=== PATIENT | female | born 1950 | race Caucasian/White ===

== ENCOUNTER 2024-06-21 00:09 | Observation (INO) | payer MEDICARE, OTHER, SELFPAY ==
[2024-06-20] VITALS (15 sets, daily range): BP systolic 117–140; BP diastolic 55–91; BMI 19.9
[2024-06-20 18:31] LABS: Glucose - Point of Care 134 mg/dl (70-99)
[2024-06-20 18:36] LABS: % Eosinophils 0.9 % (0-6); % Immature Granulocytes 0.2 % (0-0.5); % Lymphocytes 37.2 % (20.5-51.1); % Neutrophils 52.7 % (42.2-75.2); Absolute Basophils 0.1 10^3/uL (0-0.2); Absolute Eosinophils 0.1 10^3/uL (0-0.7); Absolute Lymphocytes 3.7 10^3/uL (1.2-3.4); Absolute Monocytes 0.8 10^3/uL (0.1-0.6); Absolute Neutrophils 5.3 10^3/uL (1.4-6.5); Hematocrit 42.8 % (37.0-47.0); Hemoglobin 14.9 g/dL (12.0-16.0); Mean Corp Hgb Conc. 34.8 g/dL (33.0-37.0); Mean Corpuscular Hgb 32.4 pg (27.0-31.0); Mean Platelet Volume 9.4 fL (7.4-10.4); Nucleated Red Blood Cells % 0 %; Platelet Count 296 10^3/uL (130-400); Red Cell Dist. Width 13.5 % (11.5-14.5)
--- NOTE | 2024-06-20 18:37 | ED.GENMED ---
History of Present Illness
General
Chief Complaint: Fainting/Passed Out
Source: patient
Exam Limitations: none
Time Seen by Provider: 06/20/24 18:35
Nursing documentation reviewed up to this point in time: agreed with
History of Present Illness
History of Present Illness:
-year-old female presenting with department after passing out at a wedding. She was sitting at the table, and her son noticed that she had her head down on the table. She did not drink any alcohol. Son states she did not never drinks alcohol.
Upon arriving to triage she was pale with decreased responsiveness and near syncope. She feels weak.
Past History
Past History
ED Past Medical History: HTN and Hypercholesterolemia
Social History
Tobacco: Smoker
Alcohol: None
Drug: None
Review of Systems
Review of Systems
Allergies reviewed?: Yes
All Other Systems: Not applicable
Constitutional: Reports no symptoms
EENT: Reports no symptoms
Respiratory: Reports no symptoms
Cardiac: Reports syncope
ABD/GI: Reports no symptoms
: Reports no symptoms
Musculoskeletal: Reports no symptoms
Skin: Reports other (Yellow skin)
Neurological: Reports no symptoms
Endocrine: Reports no symptoms
Hematologic/Lymphatic: Reports no symptoms
Psychiatric: Reports no symptoms
Phy Exam
Physical Exam
Physical Exam:
Physical Exam
General: Appears frail, ill-appearing, temperature 98.0 rectal
Neck: supple. no meningeal signs. normal posterior pharynx
Heart: s1/s2 regular rate and rhythm, no murmur. equal radial
pulses.
HEENT: Pupils equal round reactive to light, EOMI
Lungs: no acute respiratory distress. clear bilaterally
Abdomen: normal bowel sounds. not tender. no CVAT, pulsatile mass epigastric
Neuro: alert and oriented. no focal neurological deficits cranial nerves II through XII intact
Skin: no rash, jaundice
Psychiatric: well kept. interactive and cooperative
Extremities: no edema. no calf tenderness. negative homans. good distal pulses
Course
Orders/Labs/Results
Orders:
Orders
06/20/24 18:19
EKG [Electrocardiogram (*1)] Urgent
Reason for Study: Chest Pain
06/20/24 18:20
EKG- Treatment ONCE
06/20/24 18:22
Complete Blood Count/With Diff Urgent
Comprehensive Metabolic Panel Urgent
Lipase Urgent
Comment: ADD ON
PTT Urgent
Prothrombin Time Urgent
Troponin I Urgent
06/20/24 18:33
Lactate Level [Lactic Acid] Urgent
06/20/24 18:34
Add On- LAB Urgent
Tests Added?: lipase
06/20/24 18:37
CT Abd/pelvis W Iv Cont Urgent
Comment:
Reason For Exam: syncope, pulsatile mass epigastric region, jaundic
06/20/24 18:38
0.9% Sodium Chloride 1000 ml [Nss] 1,000 ml IV BOLUS
06/20/24 22:07
Urinalysis Reflex To Culture Urgent
Date Specimen was Collected: 06/20/24
Time Specimen was Collected: 18:32
Urine Microscopic Reflex Cult Urgent
Abnormal Lab Results
06/20/24 06/20/24 06/20/24
18:20 18:22 18:33
MCH 32.4 H pg
(27.0-31.0)
Absolute Lymphs (auto) 3.7 H 10^3/uL
(1.2-3.4)
Absolute Monos (auto) 0.8 H 10^3/uL
(0.1-0.6)
Sodium 132 L mmol/L
(135-145)
Glucose 161 H mg/dl
(70-99)
Lactic Acid 3.0 H mmol/L
(0.7-2.0)
Total Bilirubin 1.4 H mg/dl
(0.2-1.3)
Ur Occult Blood Reflex
Urine RBC
Urine Bacteria (Reflex)
POC Glucose 134 H mg/dl
(70-99)
06/20/24
22:07
MCH
Absolute Lymphs (auto)
Absolute Monos (auto)
Sodium
Glucose
Lactic Acid
Total Bilirubin
Ur Occult Blood Reflex 3+ A
(Negative)
Urine RBC 7-10 A /HPF
(0-2)
Urine Bacteria (Reflex) Few A
(Negative)
POC Glucose
06/20/24 18:22
06/20/24 18:22
Vital Signs
Initial and Last Documented VS:
Initial Vital Signs
Pulse Resp BP Pulse Ox
56 18 134/71 95
06/20/24 18:23 06/20/24 18:23 06/20/24 18:23 06/20/24 18:23
Last Documented Vital Signs
Temp Pulse Resp BP Pulse Ox
98.0 F 62 18 127/59 98
06/20/24 18:32 06/20/24 22:00 06/20/24 22:00 06/20/24 22:00 06/20/24 19:38
MDM/Problems Addressed
Differential Diagnosis Includes:
Ruptured AAA, dysrhythmia
MDM/Problems Addressed:
73-year-old female with multiple syncope episodes, incidental infrarenal AAA. Discussed with vascular surgery, recommends outpatient follow-up. Admit to hospitalist for further monitoring. Lactic acid elevated, unclear etiology. IV fluids given.
Chronic conditions affecting care: HTN
Acute Exacerbation and/or Progression of Chronic Illness: HTN
*Radiology
Radiology exam reviewed: radiology read reviewed (CT abdomen pelvis shows infrarenal AAA 4.1 cm, minimal prominence of intrahepatic bile ducts, chronic degenerative disc disease)
*Pulse Oximetry
Patient hypoxic: no
*Dentures Lab Technician Interpretation
Rate: normal
Interpretation: normal
Heart Rate: 66
Rhythm: sinus
*Critical Care Note
Total Time (30-74mins, 75-104mins- exclusive of procedures): Not Applicable
Patient Management
Social determinants of health affecting care: Living situation and Strong social support
Discussion with other providers: Hospitalist
Escalation/DeEscalation of care consider admission/obs:
admit indicated
ED Attending Note
-
Portions of this chart may have been created with voice recognition software.� Occasional wrong word or��sound alike� substitutions may have occurred due to the inherent limitations of voice recognition software.
Discharge Plan
Departure
Patient Disposition: Admit
Date of Disposition: 06/20/24
Time of Disposition: 22:48
Admit to: Telemetry
Presentation/result/management discussed w/ accepting MD/DO: Hospitalist
Patient with high blood pressure during this ER visit?: Yes
Condition: Good
Discharge Problem:
Syncope
Prescriptions:
No Action
atorvastatin 40 mg Tablet
40 mg PO DAILY
carvedilol 6.25 mg Tablet
6.25 mg PO BID
alendronate 35 mg Tablet
35 mg PO QWEEK
magnesium 250 mg Tablet
250 mg PO DAILY
Fish Oil Capsule
1,000 mg PO DAILY
duloxetine 20 mg Capsule, Delayed Rel Sprinkle
20 mg PO BID
Referrals:
Catherine Mckeon DO [Family Provider] -
Interventions
Interventions:
*Risk Screen - Suicide Last Done: 06/20/24 19:35
*General Assessment Last Done: 06/20/24 19:35
*Neglect/Abuse Screening Last Done: 06/20/24 19:35
*ED COVID-19 Vaccine History Last Done: 06/20/24 19:35
ED- Cardiac Assessment Last Done: 06/20/24 19:35
ED- Neurological Assessment Last Done: 06/20/24 19:35
Discharge Date and Time
Print Language: TELUGU
[2024-06-20 18:44] LABS: INR 1.03; PT 13.8 Sec (11.4-14.6)
[2024-06-20 18:45] LABS: APTT 29.7 Sec (23.4-35.0)
[2024-06-20] MEDS: NSS 1000 IV (18:46)
[2024-06-20 18:55] LABS: Troponin I < 0.012 ng/ml
[2024-06-20 19:01] LABS: ALT (SGPT) 15 U/L (0-35); AST (SGOT) 23 U/L (14-36); Albumin 4.1 g/dl (3.5-5.0); Alkaline Phosphatase 99 U/L (38-126); Blood Urea Nitrogen 13 mg/dl (7-17); Calcium 9.6 mg/dl (8.4-10.2); Carbon Dioxide 25 mmol/L (22-30); Chloride 101 mmol/L (98-107); Glucose 161 mg/dl (70-99); Lipase 82 U/L (23-300); Potassium 4.9 mmol/L (3.5-5.1); Sodium 132 mmol/L (135-145); Total Bilirubin 1.4 mg/dl (0.2-1.3); Total Protein 6.6 g/dl (6.3-8.2); eGFR > 60.00
[2024-06-20 22:13] LABS: Urine Albumin Negative (Neg - Trace); Urine Bilirubin Negative (Negative); Urine Character Clear (Clear); Urine Color Yellow; Urine Glucose Negative (Negative); Urine Ketone Negative (Negative); Urine Leukocyte Negative (Negative); Urine Nitrite Negative (Negative); Urine Occult Blood 3+ (Negative); Urine Urobilinogen Negative (Neg - 1+)
[2024-06-20 22:20] LABS: Urine Squamous Cell 26-30 /LPF (Few)
[2024-06-20 22:21] LABS: Urine Bacteria Few (Negative); Urine White Cell 0-2 /HPF (0-5)
--- NOTE | 2024-06-20 23:31 | HPS.HSE ---
Family Physician
-
Family Physician: Catherine Mckeon, DO
Chief Complaint
-
presyncope
History of Present Illness
73-year-old female past medical history of hypertension, hypercholesteremia, twitchy nerves, osteoporosis, presenting with near syncope at a wedding. She was at a wedding across the street and she felt dizzy and sweaty, pale looking and felt like
she was going to pass out. Put her head on the table and was close to passing out but did not pass out. Her family members brought her in a car to the hospital. She was given teressa dina without improvement. She continued to feel faint until she
was given IV fluids in the emergency room. She feels tired now but denies any other symptoms. Denies headache, blurry vision, chest pain or shortness of breath at any time. Denies fevers or chills, cough, nausea vomiting or diarrhea or any
infectious symptoms. No seizure activity was noted.
Patient did have breakfast did not eat anything all day.
She smokes half a pack of cigarettes per day. Denies alcohol use.
No family history of syncope. Did have a sister with heart issues.
Medical History
Past Medical History
Past Medical History: Reports Other (hypertension, hypercholesteremia, twitchy nerves, osteoporosis,)
Past Surgical History: Reports None
Social History
Tobacco: Non-smoker
Alcohol: None
Drug: None
Family History
Family History: Not pertinent
Allergies / Home Medications
Allergies reflects when Allergies were last updated in [employer].
Home Medications with original date entered in [employer]
Allergy/Medication List:
Allergies
Allergy/AdvReac Type Severity Reaction Status Date / Time
No Known Allergies Allergy Unverified 06/20/24 18:27
Home Medications
alendronate 35 mg tablet 35 mg PO QWEEK 06/20/24
atorvastatin 40 mg tablet 40 mg PO DAILY 06/20/24
carvedilol 6.25 mg tablet 6.25 mg PO BID 06/20/24
duloxetine 20 mg capsule,delayed release sprinkle 20 mg PO BID 06/20/24
magnesium 250 mg tablet 250 mg PO DAILY 06/20/24
omega-3 fatty acids 1,000 mg PO DAILY 06/20/24
Review of Systems
-
History Source: Patient
A 12 point ROS was completed and negative except as noted: Yes
Constitutional: Reports No Symptoms
EENT: Reports No Symptoms
Respiratory: Reports No Symptoms
Cardiac: Reports No Symptoms
Abdomen/GI: Reports No Symptoms
: Reports No Symptoms
Musculoskeletal: Reports No Symptoms
Skin: Reports No Symptoms
Neurological: Reports No Symptoms
Endocrine: Reports No Symptoms
Hematologic/Lymphatic: Reports No Symptoms
Psych: Reports No Symptoms
Physical Exam
Vital Signs
Vital Signs
Temp Pulse Resp BP Pulse Ox
98.0 F 66 19 128/55 98
06/20/24 18:32 06/20/24 23:15 06/20/24 23:15 06/20/24 23:00 06/20/24 19:38
Physical Exam
General: Well Developed, Well Nourished and No Apparent Distress
HEENT: NormoCephalic, Moist mucous membranes and Atraumatic
Respiratory: Clear
Cardiac: S1/S2 and Regular Rhythm; No Murmur or Rub
GI: Soft, Non Tender, Non Distended and Normal Bowel Sounds; No Organomegaly
Rectal: Deferred by Provider
Musculoskeletal: No Clubbing, No Cyanosis and No Edema
Skin: No Rash
Neuro: Nonfocal/grossly intact
Laboratory Results
-
06/20/24 18:22
06/20/24 18:22
Laboratory Results
PT 13.8 Sec (11.4-14.6) 06/20/24 18:22
INR 1.03 06/20/24 18:22
APTT 29.7 Sec (23.4-35.0) 06/20/24 18:22
Lactic Acid 3.0 mmol/L (0.7-2.0) H 06/20/24 18:33
Total Bilirubin 1.4 mg/dl (0.2-1.3) H 06/20/24 18:22
AST 23 U/L (14-36) 06/20/24 18:
ALT 15 U/L (0-35) 06/20/24 18:22
Alkaline Phosphatase 99 U/L (38-126) 06/20/24 18:
Troponin I < 0.012 ng/ml 06/20/24 18:
Lipase Cancelled 06/20/24 18:33
Data Reviewed
-
Lab Data: Labs Reviewed by me
Old Records: Reviewed
Impression/Plan
-
IMPRESSION:
PLAN:
# Presyncopal episode most likely vasovagal
-EKG unremarkable, tele monitoring
-Blood sugar of 161 so hypoglycemia unlikely
-Lactic of 3, recheck
-IV fluids were given
# Incidental discovery of abdominal aortic aneurysm
-CT abdomen pelvis report pending which showed abdominal aortic aneurysm, which was discussed with vascular recommended outpatient follow-up
Essential hypertension
-Continue Coreg
Hypercholesterolemia
-Continue statin
History of twitchy nerves
-Not anxiety or essential tremor or neuropathy as per patient
-On duloxetine for this
Osteoporosis
-Continue alendronate
Active smoker
-Half pack of cigarettes per day
Full code
DVT prophylaxis�heparin
Regular diet
[2024-06-21] VITALS (13 sets, daily range): BP systolic 117–151; BP diastolic 46–78; PULSE 59–65; BMI 18.5
[2024-06-21 00:25] LABS: Lactic Acid 0.9 mmol/L (0.7-2.0)
--- NOTE | 2024-06-21 03:31 | PTCARENOTE ---
Receive pt from ER. Pt alert oriented X3, pleasant, in no distress. Pt assist X1 to her bed, feels a little 'wobbly'. Pt oriented to the room, call leon within reach. Pt denies dizziness, chest pain, , SOB, headache, or fainting sensation. Pt on NSR
on tele monitor. VSS (T=97.9, HR=64, RR=18, ML=494/78, SpO2=98% on RA). Pt instructe to call before getting OOB. Pt agreeable. Will continue to monitor the pt.
[2024-06-21 08:27] LABS: % Basophils 1.1 % (0-2); % Eosinophils 1.6 % (0-6); % Immature Granulocytes 0.3 % (0-0.5); % Lymphocytes 30.5 % (20.5-51.1); % Monocytes 11.5 % (1.7-9.3); Absolute Basophils 0.1 10^3/uL (0-0.2); Absolute Eosinophils 0.1 10^3/uL (0-0.7); Absolute Lymphocytes 2.2 10^3/uL (1.2-3.4); Absolute Monocytes 0.8 10^3/uL (0.1-0.6); Hematocrit 33.5 % (37.0-47.0); Hemoglobin 11.9 g/dL (12.0-16.0); Mean Corp Hgb Conc. 35.5 g/dL (33.0-37.0); Mean Corpuscular Hgb 32.9 pg (27.0-31.0); Mean Corpuscular Volume 92.5 fL (81.0-99.0); Nucleated Red Blood Cells % 0 %; Platelet Count 248 10^3/uL (130-400); Red Blood Cell Count 3.62 10^6/uL (4.20-5.40); Red Cell Dist. Width 13.4 % (11.5-14.5); White Blood Cell Count 7.3 10^3/uL (4.8-10.8)
[2024-06-21 08:36] LABS: ALT (SGPT) 12 U/L (0-35); AST (SGOT) 18 U/L (14-36); Albumin 3.1 g/dl (3.5-5.0); Alkaline Phosphatase 83 U/L (38-126); Blood Urea Nitrogen 10 mg/dl (7-17); Calcium 8.7 mg/dl (8.4-10.2); Carbon Dioxide 25 mmol/L (22-30); Chloride 103 mmol/L (98-107); Estimated Creatinine Clearance 53 ml/min; Glucose 89 mg/dl (70-99); Potassium 3.8 mmol/L (3.5-5.1); Sodium 134 mmol/L (135-145); Total Bilirubin 1.4 mg/dl (0.2-1.3); Total Protein 5.2 g/dl (6.3-8.2); eGFR > 60.00
[2024-06-21] MEDS: LIPITOR 40 MG PO (09:21)
[2024-06-21] MEDS: COREG 6.25 MG PO (09:21)
[2024-06-21] MEDS: MAGNESIUM OXIDE 250 MG PO (09:21)
[2024-06-21] MEDS: CYMBALTA DELAYED RELEASE 20 MG PO (09:22)
--- NOTE | 2024-06-21 10:53 | CM ---
Patient seen at bedside
IA completed - WILDE form explained. Verbalize understanding. In chart
Lives alone in 2 story home, 5 steps to enter, flight stairs to bedroom, full bath on 1st floor
plof: Independent, no assistive device
DME: [facility]
Had [facility] in past, denies rehab
PCP: Catherine Mckeon
PHARMACY: [facility]
PLAN: home, no needs anticipated
son to transport
--- NOTE | 2024-06-21 12:36 | W.PN.HOSP.TC ---
Today's Communication/Plan
-
Discharge home
OP follow-up with livestock haulier for consideration of heart monitor
OP follow-up with PCP for AAA monitoring
Smoking cessation (Rx for nicotine patches
Assessment / Plan
Assessment / Plan
#Presyncopal
-episode most likely vasovagal, occurred after standing and had no prodromal symptoms
-Patient states she has never passed out previously, denies significant cardiac history
-Upon arrival ECG without ischemic findings, no signs of hypoglycemia
-May have had a degree of dehydration versus hypotension as lactate was mildly elevated
-Proceed IV fluids with resolution of lactic acidosis, improved symptoms
-Orthostatic vital signs today negative; telemetry without any events overnight
-Will discharge, can follow-up OP with livestock haulier for consideration of MCOT
#Abdominal aortic aneurysm
-CT abdomen pelvis report pending which showed abdominal aortic aneurysm, which was discussed with vascular recommended outpatient OP follow-up
-Continue with carvedilol and high intensity statin therapy
-Encourage absolute smoking cessation
#Essential hypertension
-Does have hypertensive systemic disease with newly found AAA
-Home regimen includes carvedilol 6.25 twice daily
-Blood pressure here fairly well-controlled
-BP goal <140/90 with AAA
#Hypercholesterolemia
-No history of obstructive CAD though does have some PAD with AAA found on CT
-Home medications include high intensity statin
-LDL goal <70
#History of twitchy nerves
-Not anxiety or essential tremor or neuropathy as per patient
-States that she had an issue with cardiac cath due to 'her nerves blocking the catheter'
-On duloxetine for this
#Osteoporosis
-Continue alendronate
#Active smoker
-Half pack of cigarettes per day
-Encouraged cessation
Full code
DVT prophylaxis�heparin
Regular diet
Anticipated Discharge: Today
Subjective/Interval History
-
Date of Service: June 21, 2024
Objective Data
-
Labs:
Laboratory Results
06/21/24
07:19
WBC 7.3
Hgb 11.9 L D
Hct 33.5 L
Plt Count 248
Sodium 134 L
Potassium 3.8
Chloride 103
Carbon Dioxide 25
BUN 10
Creatinine 0.7
Glucose 89
Calcium 8.7
Total Bilirubin 1.4 H
AST 18
ALT 12
Alkaline Phosphatase 83
Vital Signs:
Vital Signs
Temp Pulse Resp BP Pulse Ox
97.8 F 62 18 117/76 96
06/21/24 07:00 06/21/24 09:21 06/21/24 07:00 06/21/24 09:21 06/21/24 09:10
I&O
06/20/24 06/21/24 06/22/24
06:59 06:59 06:59
Intake Total 480 / 480
Balance 480 / 480
--- NOTE | 2024-06-21 14:50 | W.DCSUMMARY ---
Discharge Summary
Discharge Data
Date of Admission: 06/21/24
Date of Discharge: 06/21/24
Total time spent discharging patient (in min): 31
-
Pending Results: No
Hospital Course
Discharging provider: Juve Alarcon DO
Discharge disposition: Home
Acute discharge diagnoses:
Presyncope
Abdominal aortic aneurysm (4.2 cm) with possible mural thrombus
Tobacco use disorder
Chronic discharge diagnoses:
HTN
HLD
Osteoporosis
Unspecified neurologic disorder
Hospital course:
73-year-old female that presented to the hospital after a presyncopal episode while attending a wedding nearby. Per history she was at the wedding in the time of the cocktail hour, was walking and standing a lot prior to the episode. States that
she became lightheaded and had to sit down where she worsened and developed perspiration. Denied any prodromal symptoms including chest pain, dyspnea, palpitations. Denied previous history of similar occurrences. Upon arrival ECG was nonischemic.
Initial lactate 3.0 but quickly resolved with IV fluids. Was noted to have pulsatile mass of the abdomen so CT A/P was performed which showed a 4.2 cm AAA with signs of mural thrombus. Vascular surgery was curb sided and recommended outpatient
follow-up with no plans for acute intervention. She was monitored on telemetry during her hospitalization and did not have any abnormal events recorded. Orthostatic vital signs were unremarkable and not associated with symptoms. Patient had
preference of discharge, low suspicion for neurologic or Cardiologic etiology for her symptoms. Suspicion high for vasovagal episode, possibly from prolonged standing. She improved quickly after arrival and remained well throughout the
hospitalization. There was some concern of mild biliary ductal dilation on CT scan however liver function tests were stable with only mildly elevated total bilirubin.
Pertinent imaging:
CT A/P w/ IV contrast (06/20/24)
IMPRESSION:
1. Infrarenal abdominal aortic aneurysm measuring 4.2 cm in diameter, with mural thrombus. No evidence of rupture or leakage.
2. Pronounced atherosclerotic calcified plaque within the common iliac artery on each side.
3. Mild prominence of the intrahepatic bile ducts of unknown etiology. Extrahepatic common bile duct is within normal limits. Consider MRI/MRCP as clinically appropriate.
Post-discharge follow-up:
At time of discharge it was recommended that she follow-up with her family physician and heel painter within 1 to 2 weeks. Can have consideration for ambulatory heart monitor with cardiology.
Should have follow-up abdominal ultrasound with consideration for vascular surgery referral on the outpatient basis. Encouraged her to continue carvedilol and high intensity statin therapy in the interim.
Smoking cessation. Ordered 1 week of nicotine patches, should have discussion with primary doctor about Chantix
Discharge Plan
-
Patient Disposition: Home (Routine Discharge)
Discharge Diagnosis/Procedures: Presyncope
Presumed vasovagal episode
Abdominal aortic aneurysm
Condition: Good
Diet: No restrictions
Additional Diets: Drink 64 ounces of water daily
Activity: As tolerated
Driving Restrictions: No driving for 24 hours
Bathing Restrictions: None
Blood Work: None
Others Tests: Follow-up with your heel painter for consideration of ambulatory heart monitor
Follow-up with your family physician for ultrasounds of your abdominal aortic aneurysm
Activity Restrictions/Additional Instructions:
After discharge schedule follow-up appointment with your family doctor and heel painter. Should be seen in the office within 1 to 2 weeks of your discharge.
Stop smoking as tobacco use is well known to cause worsening to abdominal aortic aneurysms
If you develop recurrence of your symptoms, have an episode where you pass out, or develop significant chest discomfort or shortness of breath then return to the emergency department for further assessment.
Instructions: Near Fainting
Referrals:
Catherine Mckeon DO [Family Provider] -
Additional Discharge Medication Instructions: No medication changes
Prescription for nicotine patches sent to pharmacy
Talk to your family doctor about starting Chantix
Prescriptions:
New
nicotine 7 mg/24 hr patch 24 hour
1 patch transdermal Q24H Qty: 7 0RF
Continued
atorvastatin 40 mg Tablet
40 mg PO DAILY
carvedilol 6.25 mg Tablet
6.25 mg PO BID
alendronate 35 mg Tablet
35 mg PO QWEEK
magnesium 250 mg Tablet
250 mg PO DAILY
omega-3 fatty acids Capsule
1,000 mg PO DAILY
duloxetine 20 mg Capsule, Delayed Rel Sprinkle
20 mg PO BID
Discharge Orders:
Discharge Patient (As Directed); Ordered 06/21/24
Ordered By: Juve Alarcon
Discharge Date and Time
Discharge Date/Time: 06/21/24 13:30
Print Language: SETSWANA
== END 2024-06-21 13:30 | disposition home or self-care (01) ==
LOC: 4 EAST ACU 00:09
PROVIDERS: ADMITTING PHYSICIAN Hospitalist; ATTENDING PHYSICIAN Internal Medicine; EMERGENCY PHYSICIAN Emergency Medicine; FAMILY PHYSICIAN Family Medicine
DX: R55 Syncope and collapse (principal); F17.210 Nicotine dependence, cigarettes, uncomplicated; R07.9 Chest pain, unspecified; R19.06 Epigastric swelling, mass or lump; I10 Essential (primary) hypertension; I71.43 Infrarenal abdominal aortic aneurysm, without rupture; E78.00 Pure hypercholesterolemia, unspecified; M81.0 Age-related osteoporosis without current pathological fracture; E78.5 Hyperlipidemia, unspecified; I51.3 Intracardiac thrombosis, not elsewhere classified
CPT/HCPCS: 74177; 80053; 81003; 81015; 82962; 83605; 83690; 84484; 85025; 85610; 85730; 93005; 96360; 99285; G0378; Q9967